=== PATIENT | female | born 1960 | race American Indian/Alaskan Native ===

== ENCOUNTER 2019-02-15 13:47 | Emergency (ER) | payer MEDICARE, BC ==
[~2019-02-15] VITALS: Ht 172.7 cm; Wt 75.5 kg
[2019-02-15] MEDS ORDERED: KETOROLAC TROMETHAMINE 60 MG/2 ML VIAL IM ONE (16:45)
[2019-02-15 19:05] VITALS: BP 124/76
== END 2019-02-15 19:11 | disposition home or self-care (01) ==
LOC: EMS 13:55
DX: S80.12XA Contusion of left lower leg, initial encounter (principal); W01.0XXA Fall on same level from slipping, tripping and stumbling without subsequent striking against object, initial encounter; Y93.01 Activity, walking, marching and hiking; Y92.512 Supermarket, store or market as the place of occurrence of the external cause; Y99.8 Other external cause status
CPT/HCPCS: 73552; 96372; 99283; J1885